=== PATIENT | female | born 1970 | race African-American/Black ===

== ENCOUNTER 2023-01-28 14:26 | Emergency (ER) | payer OTHER ==
[~2023-01-28] VITALS: Ht 157.5 cm; Wt 78.9 kg
[2023-01-28] MEDS ORDERED: GABAPENTIN (14:41)
[2023-01-28] MEDS ORDERED: [UNRECOGNIZED DRUG - OTHER] (14:41)
--- NOTE | 2023-01-28 14:48 | NUR ---
PT IS IN ROOM #5A. DR ABREU EVALUATED THE PT.
[2023-01-28] MEDS ORDERED: TDAP DIPH,PERTUSS,TET VAC/PF 0.5 ML DISP.SYRIN IM ONE ×2 (14:51→15:00)
[2023-01-28] MEDS ORDERED: KETOROLAC TROMETHAMINE 30 MG INJ ONE (14:51)
[2023-01-28] MEDS ORDERED: NEOMY/BACITRA/POLYMYXIN B OINT UD PACKET TP ONE ×2 (14:52→15:00)
[2023-01-28] MEDS ORDERED: KETOROLAC TROMETHAMINE 30 MG INJ IM ONE (15:00)
[2023-01-28] MEDS ORDERED: NAPR-1009 PO (15:35)
--- NOTE | 2023-01-28 15:40 | NUR ---
Embryology Professor assumes care: Patient is for discharge, she is AOx4, calm and breathing easily. Patient is now for discharged to home. Written and verbal after care instructions given. Patient verbalized understanding and compliance of instructions. Stressed follow up with primary doctor and ortho doctor or return to ER for worsening s/s. Patient left ER in stable condition and steady gait.
[2023-01-28 15:43] VITALS: BP 129/79
== END 2023-01-28 15:44 | disposition home or self-care (01) ==
LOC: ER 14:26
DX: S43.401A Unspecified sprain of right shoulder joint, initial encounter (principal); S80.812A Abrasion, left lower leg, initial encounter; Z79.899 Other long term (current) drug therapy; V19.9XXA Pedal cyclist (driver) (passenger) injured in unspecified traffic accident, initial encounter; Y93.89 Activity, other specified; Y92.89 Other specified places as the place of occurrence of the external cause; Y99.8 Other external cause status
CPT/HCPCS: 99284; 73030; 90715; 96372; 90471; J1885; A4663